=== PATIENT | female | born 1950 | race African-American/Black ===

== ENCOUNTER 2023-06-10 13:10 | Emergency (ER) | payer MEDICAID, OTHER, SELFPAY ==
[2023-06-10] MEDS ORDERED: Meclizine HCl 25 MG TAB ONE (14:28)
[2023-06-10 14:45] LABS: #Eosinphils 0.4 thou/uL (0.0-0.7); #Monocytes 0.4 thou/uL (0.11-0.59); #Neutrophils 3.3 thou/uL (1.40-6.50); %Basophils 0.3 % (0.0-1.0); %Eosinophils 5.8 % (0.0-10.0); %Lymphocytes 38.5 % (21.0-51.0); %Monocytes 6.3 % (0.0-10.0); %Neutrophils 48.8 % (42.0-75.0); Hematocrit 31.2 % (36.0-47.0); Hemoglobin 9.8 g/dL (12.0-16.0); Mean Corpuscular HGB CONC 31.4 g/dL (32.0-36.0); Mean Corpuscular Hemoglobin 29.1 pg (27.0-31.0); Mean Corpuscular Volume 92.6 fl (78.0-98.0); Mean Platelet Volume 10.2 fL (7.4-10.4); Platelet Count 282 10x3/uL (130-400); RBC Distribution Width 12.9 % (11.5-14.5); Red Blood Cell (RBC) Count 3.37 mill/uL (4.20-5.40); White Blood Cell (WBC) Count 6.7 10x3/uL (4.8-10.8)
[2023-06-10 15:08] LABS: ALT (SGPT) 15 U/L (8-55); AST (SGOT) 23 U/L (5-34); Albumin 3.9 g/dL (3.4-4.8); Alkaline Phosphatase 60 U/L (40-110); Anion Gap 12 mmol/L (10-20); BUN (Urea Nitrogen) 22 mg/dL (9.8-20.1); Bilirubin, Total 0.4 mg/dL (0.2-1.2); Calc. Creatinine Clearance 0 mL/min (70-130); Carbon Dioxide 22 mmol/L (23-31); Chloride 112 mmol/L (98-107); Estimated GFR 29; Globulin 3.6 g/dL (2.4-3.5); Glucose 88 mg/dL (80-115); Potassium 4.3 mmol/L (3.5-5.1); Protein, Total 7.5 g/dL (5.8-8.1); Sodium 142 mmol/L (136-145)
[2023-06-10 15:13] LABS: Troponin I Less than 0.010 ng/mL (< 0.028)
== END 2023-06-10 15:24 | disposition home or self-care (01) ==
LOC: ERS 13:10
DX: R42 Dizziness and giddiness (principal); R29.710 NIHSS score 10; E11.9 Type 2 diabetes mellitus without complications; I10 Essential (primary) hypertension; Z86.73 Personal history of transient ischemic attack (TIA), and cerebral infarction without residual deficits; Z79.899 Other long term (current) drug therapy
CPT/HCPCS: 70450; 80053; 84484; 85025; 93005

== ENCOUNTER 2023-06-30 11:16 | Outpatient (CLI) | payer OTHER | END 2023-06-30 11:17 | disposition home or self-care (01) | LOC: BICMAMMO 11:16 | PROVIDERS: ATTEND Family Medicine | DX: Z12.31 Encounter for screening mammogram for malignant neoplasm of breast (principal); Z80.3 Family history of malignant neoplasm of breast | CPT/HCPCS: 77063; 77067 ==

== ENCOUNTER → 2023-07-14 | Outpatient (CLI) | payer OTHER, MEDICAID | LOC: PET 08:45 | PROVIDERS: ATTEND Family Medicine | DX: R91.1 Solitary pulmonary nodule (principal) | CPT/HCPCS: 78815; A9552 ==

== ENCOUNTER 2023-10-10 08:27 | Outpatient (CLI) | payer OTHER, MEDICAID | END 2023-10-10 08:28 | disposition home or self-care (01) | LOC: CT 08:27 | PROVIDERS: ATTEND Student in an Organized Health Care Education/Training Program | DX: R91.8 Other nonspecific abnormal finding of lung field (principal) | CPT/HCPCS: 71250 ==

== ENCOUNTER 2024-04-08 11:16 | Inpatient (IN) | payer OTHER ==
[2024-04-08 11:58] LABS: #Basophils 0.03 10x3/uL (0.0-0.2); %Basophils 0.5 % (0.0-1.0); %Eosinophils 4.1 % (0.0-10.0); %Lymphocytes 40.5 % (21.0-51.0); %Monocytes 8.4 % (0.0-10.0); %Neutrophils 46.2 % (42.0-75.0); Hematocrit 29.6 % (36.0-47.0); Hemoglobin 9.6 g/dL (12.0-16.0); Mean Corpuscular HGB CONC 32.4 g/dL (32.0-36.0); Mean Corpuscular Volume 89.4 fL (78.0-98.0); Mean Platelet Volume 9.6 fL (7.4-10.4); Platelet Count 251 10x3/uL (130-400); RBC Distribution Width 12.7 % (11.5-14.5); Red Blood Cell (RBC) Count 3.31 mill/uL (4.20-5.40)
[2024-04-08 12:13] LABS: ALT (SGPT) 10 U/L (8-55); AST (SGOT) 21 U/L (5-34); Albumin 3.1 g/dL (3.4-4.8); Alkaline Phosphatase 49 U/L (40-110); Anion Gap 16 mmol/L (10-20); BUN (Urea Nitrogen) 30 mg/dL (9.8-20.1); Bilirubin, Total 0.4 mg/dL (0.2-1.2); Calc. Creatinine Clearance 0 mL/min (70-130); Calcium 8.6 mg/dL (7.8-10.44); Carbon Dioxide 21 mmol/L (23-31); Chloride 109 mmol/L (98-107); Estimated GFR 20; Globulin 4.1 g/dL (2.4-3.5); Glucose 77 mg/dL (83-110); Potassium 3.9 mmol/L (3.5-5.1); Protein, Total 7.2 g/dL (5.8-8.1); Sodium 142 mmol/L (136-145)
[2024-04-08 12:24] LABS: Troponin I Less than 0.010 ng/mL (< 0.028)
[2024-04-08] MEDS ORDERED: Glucagon 1 MG/ML KIT IM PRN (15:16)
[2024-04-08] MEDS ORDERED: Ondansetron ODT 4 MG TAB PO PRN (15:16)
[2024-04-08] MEDS ORDERED: Acetaminophen 650 MG Suppository PR PRN (15:16)
[2024-04-08] MEDS ORDERED: Dextrose 5% in Water 1,000 ML IV PRN (15:16)
[2024-04-08] MEDS ORDERED: Dextrose 50% Abboject 50 ML SYRINGE SLOW IVP PRN (15:16)
[2024-04-08] MEDS ORDERED: Senokot S 8.6-50 MG TAB PO PRN (15:16)
[2024-04-08] MEDS ORDERED: Nitroglycerin 0.4 MG TAB (25 Tab Bottle) SL PRN (15:16)
[2024-04-08] MEDS ORDERED: Insulin Lispro 100 UNIT/ML 10 ML VIAL SC PRN ×2 (15:16)
[2024-04-08] MEDS ORDERED: Ondansetron PF 4 MG/2 ML Vial IVP PRN (15:16)
[2024-04-08 15:18] LABS: Troponin I 0.041 ng/mL (< 0.028)
[2024-04-08 15:51] LABS: Magnesium 2.3 mg/dL (1.6-2.6)
[2024-04-08] MEDS ORDERED: Aspirin Chewable 81 MG TAB ONE (17:32)
[2024-04-08] MEDS ORDERED: Pantoprazole DR 40 MG TAB ONE (17:32)
[2024-04-08 17:40] VITALS: BMI 52.0
[2024-04-08] MEDS ORDERED: hydrALAZINE 25 MG TAB ONE (17:42)
[2024-04-08] MEDS ORDERED: Carvedilol 6.25 MG TAB ONE (17:42)
[2024-04-08] MEDS ORDERED: Heparin 5,000 UNITS/ML VIAL ONE (17:43)
[2024-04-08] MEDS: Carvedilol 6.25 MG TAB PO SCH (17:50)
[2024-04-08] MEDS: hydrALAZINE 25 MG TAB PO SCH (17:51)
[2024-04-08] MEDS: Heparin 5,000 UNITS/ML VIAL SC SCH (17:51)
[2024-04-08 18:59] LABS: Troponin I Less than 0.010 ng/mL (< 0.028)
[2024-04-08] MEDS: Atorvastatin Calcium 40 MG TAB PO SCH (20:24)
[2024-04-08] MEDS: Sodium Bicarbonate Tab 325 MG TAB PO SCH (20:24)
[2024-04-08] MEDS: Gabapentin 300 MG CAP PO SCH (20:24)
[2024-04-08] MEDS ORDERED: hydrALAZINE 10 MG TAB PO SCH (21:00)
[2024-04-08] MEDS ORDERED: Pantoprazole DR 40 MG TAB PO SCH (21:00)
[2024-04-08] MEDS: hydrALAZINE 20 MG/ML VIAL SLOW IVP SCH (21:37)
[2024-04-09] MEDS: Acetaminophen 325 MG TAB PO PRN (03:00)
[2024-04-09 06:23] LABS: #Basophils 0.03 10x3/uL (0.0-0.2); %Basophils 0.5 % (0.0-1.0); %Eosinophils 4.5 % (0.0-10.0); %Lymphocytes 35.5 % (21.0-51.0); %Monocytes 6.9 % (0.0-10.0); %Neutrophils 52.2 % (42.0-75.0); Hematocrit 26.9 % (36.0-47.0); Hemoglobin 8.9 g/dL (12.0-16.0); Mean Corpuscular HGB CONC 33.1 g/dL (32.0-36.0); Mean Corpuscular Volume 90.6 fL (78.0-98.0); Mean Platelet Volume 9.9 fL (7.4-10.4); Platelet Count 296 10x3/uL (130-400); RBC Distribution Width 12.8 % (11.5-14.5); Red Blood Cell (RBC) Count 2.97 mill/uL (4.20-5.40)
[2024-04-09 06:52] LABS: Anion Gap 14 mmol/L (10-20); BUN (Urea Nitrogen) 30 mg/dL (9.8-20.1); Calc. Creatinine Clearance 39 mL/min (70-130); Calcium 8.5 mg/dL (7.8-10.44); Carbon Dioxide 22 mmol/L (23-31); Chloride 111 mmol/L (98-107); Estimated GFR 18; Glucose 99 mg/dL (83-110); Potassium 4.2 mmol/L (3.5-5.1); Sodium 143 mmol/L (136-145)
[2024-04-09] MEDS: Aspirin 81 mg Enteric Coated Tablet PO SCH (08:37)
[2024-04-09] MEDS: Pantoprazole DR 40 MG TAB PO SCH (08:38)
[2024-04-09] MEDS ORDERED: Regadenoson 0.4 MG/5 ML SYRINGE ONE (09:41)
[2024-04-09] MEDS: traMADol HCl 50 MG TAB PO PRN (11:29)
[2024-04-09] MEDS: Sodium Chloride 0.9% 1,000 ML IV SCH (11:32)
[2024-04-09] MEDS: hydrALAZINE 25 MG TAB PO SCH ×2 (17:05→20:20)
[2024-04-09] MEDS: Carvedilol 25 MG TAB PO SCH (20:22)
[2024-04-09] MEDS: Doxepin HCl 10 MG CAP PO SCH ×2 (20:22)
[2024-04-09] MEDS ORDERED: hydrALAZINE 10 MG TAB PO SCH (21:00)
[2024-04-10] MEDS: hydrALAZINE 20 MG/ML VIAL SLOW IVP PRN (02:18)
[2024-04-10 05:30] LABS: Anion Gap 13 mmol/L (10-20); BUN (Urea Nitrogen) 28 mg/dL (9.8-20.1); Calc. Creatinine Clearance 44 mL/min (70-130); Calcium 8.2 mg/dL (7.8-10.44); Carbon Dioxide 21 mmol/L (23-31); Cardiac Risk 3.3 (Less than 4.5); Chloride 110 mmol/L (98-107); Cholesterol 114 mg/dl (< 200 Desired); Estimated GFR 21; Glucose 114 mg/dL (83-110); HDL Cholesterol 35 mg/dL (>60 Neg Risk); LDL Cholesterol, Calculated 62 mg/dL; Sodium 140 mmol/L (136-145); Triglycerides 84 mg/dL (Less than 150)
[2024-04-10] MEDS: Acetaminophen/Codeine 30-300mg Tablet PO SCH (06:24)
[2024-04-10] MEDS ORDERED: Non-Formulary Item 1 EACH (Sodium Bicarbonate [Sodium Bicarbonate] 650 MG Tablet) PO SCH (09:00)
[2024-04-10] MEDS: Atorvastatin Calcium 40 MG TAB PO SCH (09:00)
[2024-04-10] MEDS: Calcitriol 0.25 MCG CAP PO SCH (09:00)
[2024-04-10 12:12] VITALS: BP 148/68; TEMP 98.2
== END 2024-04-10 16:20 | disposition home or self-care (01) | DRG 313 ==
LOC: ERS 11:16 → ERHOLD 13:34 → OBS 19:40 → OBSVTOIN 04-10 13:04
PROVIDERS: ADMIT Internal Medicine; ATTEND Hospitalist
DX: R07.9 Chest pain, unspecified (principal); Z68.43 Body mass index [BMI] 50.0-59.9, adult; E78.5 Hyperlipidemia, unspecified; E11.22 Type 2 diabetes mellitus with diabetic chronic kidney disease; D63.8 Anemia in other chronic diseases classified elsewhere; I12.9 Hypertensive chronic kidney disease with stage 1 through stage 4 chronic kidney disease, or unspecified chronic kidney disease; F43.10 Post-traumatic stress disorder, unspecified; F41.9 Anxiety disorder, unspecified; F31.9 Bipolar disorder, unspecified; N18.9 Chronic kidney disease, unspecified; E66.01 Morbid (severe) obesity due to excess calories; Z90.49 Acquired absence of other specified parts of digestive tract; Z90.5 Acquired absence of kidney; Z86.73 Personal history of transient ischemic attack (TIA), and cerebral infarction without residual deficits; Z88.0 Allergy status to penicillin; Z88.8 Allergy status to other drugs, medicaments and biological substances; Z98.84 Bariatric surgery status; Z87.891 Personal history of nicotine dependence
CPT/HCPCS: 36415; 36416; 71045; 78452; 80048; 80053; 80061; 83735; 83880; 84443; 84484; 85025; 93005; 93017; 94760; 96372; 96374; 96376; A9502; G0378; J0360; J1644; J2785

== ENCOUNTER 2024-05-25 10:40 | Outpatient (CLI) | payer OTHER | END 2024-05-25 10:41 | disposition home or self-care (01) | LOC: BICCT 10:40 | PROVIDERS: ATTEND Student in an Organized Health Care Education/Training Program | DX: R91.1 Solitary pulmonary nodule (principal) | CPT/HCPCS: 71250 ==

== ENCOUNTER 2024-11-30 08:46 | Outpatient (CLI) | payer OTHER, MEDICAID | END 2024-11-30 08:47 | disposition home or self-care (01) | LOC: BICULT 08:46 | PROVIDERS: ATTEND Family Medicine | DX: C64.1 Malignant neoplasm of right kidney, except renal pelvis (principal) | CPT/HCPCS: 76700 ==

== ENCOUNTER 2024-12-04 09:29 | Outpatient (CLI) | payer OTHER, MEDICAID | END 2024-12-04 09:30 | disposition home or self-care (01) | LOC: MRI 09:29 | PROVIDERS: ATTEND Family Medicine | DX: K83.8 Other specified diseases of biliary tract (principal); K82.8 Other specified diseases of gallbladder; K80.20 Calculus of gallbladder without cholecystitis without obstruction | CPT/HCPCS: 74181; 76376 ==

== ENCOUNTER 2024-12-19 13:10 | Inpatient (IN) | payer OTHER ==
[2024-12-19] MEDS ORDERED: Mag-Al 1200 mg/1200 mg/30 ML UDCUP ONE (15:51)
[2024-12-19] MEDS ORDERED: Lidocaine Viscous Sol 2% 15 ml UD Cup ONE (15:51)
[2024-12-19 16:31] LABS: #Basophils 0.03 10x3/uL (0.0-0.2); #Eosinophils 0.28 10x3/uL (0.0-0.7); #Monocytes 0.46 10x3/uL (0.11-0.59); #Neutrophils 3.18 10x3/uL (1.40-6.50); %Basophils 0.5 % (0.0-1.0); %Eosinophils 4.6 % (0.0-10.0); %Lymphocytes 35.4 % (21.0-51.0); %Monocytes 7.5 % (0.0-10.0); %Neutrophils 51.7 % (42.0-75.0); Hematocrit 24.2 % (36.0-47.0); Hemoglobin 7.4 g/dL (12.0-16.0); Mean Corpuscular Hemoglobin 26.9 pg (27.0-31.0); Mean Corpuscular Volume 88.0 fL (78.0-98.0); Platelet Count 252 10x3/uL (130-400); Red Blood Cell (RBC) Count 2.75 mill/uL (4.20-5.40); White Blood Cell (WBC) Count 6.15 10x3/uL (4.8-10.8)
[2024-12-19 16:51] LABS: ALT (SGPT) 10 U/L (Less than 34); AST (SGOT) 22 U/L (11-34); Albumin 3.5 g/dL (3.1-4.5); Alkaline Phosphatase 50 U/L (40-110); Anion Gap 15 mmol/L (10-20); BUN (Urea Nitrogen) 32 mg/dL (9.8-20.1); Bilirubin, Total 0.3 mg/dL (0.3-1.2); Calc. Creatinine Clearance 0 mL/min (70-130); Calcium 8.9 mg/dL (7.8-10.44); Carbon Dioxide 26 mmol/L (23-31); Chloride 107 mmol/L (98-107); Globulin 3.8 g/dL (2.4-3.5); Glucose 106 mg/dL (83-110); Lipase 27 U/L (8-78); Potassium 3.8 mmol/L (3.5-5.1); Sodium 144 mmol/L (136-145)
[2024-12-19] MEDS ORDERED: Senokot S 8.6-50 MG TAB PO PRN (22:01)
[2024-12-19] MEDS ORDERED: Ondansetron PF 4 MG/2 ML Vial IVP PRN (22:01)
[2024-12-19] MEDS ORDERED: Melatonin 3 MG TAB PO PRN (22:01)
[2024-12-19] MEDS ORDERED: Electrolyte Replacement Protocol 1 EACH FS SCH (22:15)
[2024-12-19 23:16] VITALS: BMI 43.2
[2024-12-19] MEDS: Carvedilol 25 MG TAB PO SCH (23:52)
[2024-12-20] MEDS: Calcitriol 0.25 MCG CAP PO SCH (08:50)
[2024-12-20] MEDS: Carvedilol 25 MG TAB PO SCH (08:50)
[2024-12-20] MEDS: Sodium Bicarbonate Tab 325 MG TAB PO SCH (08:50)
[2024-12-20] MEDS: Heparin 5,000 UNITS/ML VIAL SC SCH (08:50)
[2024-12-20] MEDS: Gabapentin 300 MG CAP PO SCH (08:50)
[2024-12-20] MEDS: Pantoprazole 40 MG DR.TAB PO SCH (08:50)
[2024-12-20] MEDS: Furosemide 20 MG (2 mL) VIAL SLOW IVP SCH (08:51)
[2024-12-20] MEDS ORDERED: Famotidine 20 MG TAB PO SCH (09:00)
[2024-12-20] MEDS: Isosorbide Mononitrate 60 MG ER.TAB PO SCH (10:04)
[2024-12-20 10:21] LABS: #Basophils Less than 0.03 10x3/uL (0.0-0.2); #Eosinophils 0.25 10x3/uL (0.0-0.7); #Monocytes 0.40 10x3/uL (0.11-0.59); #Neutrophils 3.11 10x3/uL (1.40-6.50); %Basophils 0.4 % (0.0-1.0); %Eosinophils 4.5 % (0.0-10.0); %Lymphocytes 31.2 % (21.0-51.0); %Monocytes 7.2 % (0.0-10.0); %Neutrophils 56.3 % (42.0-75.0); Hematocrit 24.6 % (36.0-47.0); Hemoglobin 7.6 g/dL (12.0-16.0); Mean Corpuscular Hemoglobin 27.7 pg (27.0-31.0); Mean Corpuscular Volume 89.8 fL (78.0-98.0); Platelet Count 260 10x3/uL (130-400); Red Blood Cell (RBC) Count 2.74 mill/uL (4.20-5.40); White Blood Cell (WBC) Count 5.52 10x3/uL (4.8-10.8)
[2024-12-20 10:28] LABS: Anion Gap 15 mmol/L (10-20); BUN (Urea Nitrogen) 36 mg/dL (9.8-20.1); Calc. Creatinine Clearance 28 mL/min (70-130); Calcium 8.9 mg/dL (7.8-10.44); Carbon Dioxide 25 mmol/L (23-31); Chloride 107 mmol/L (98-107); Glucose 110 mg/dL (83-110); Potassium 4.0 mmol/L (3.5-5.1); Sodium 143 mmol/L (136-145)
[2024-12-20] MEDS: EPOETIN ALFA-EPBX (ESRD) 10,000 UNITS/ML VIAL SC SCH (11:08)
[2024-12-20] MEDS: Acetaminophen 325 MG TAB PO PRN (13:00)
[2024-12-20] MEDS: hydrALAZINE 20 MG/ML VIAL SLOW IVP PRN (16:31)
[2024-12-20] MEDS: Pantoprazole 40 MG VIAL IVP SCH (21:03)
[2024-12-20] MEDS: Insulin Glargine 30 UNITS/0.3 ML VIAL SC SCH (21:03)
[2024-12-21 05:31] LABS: Iron 29 ug/dL (50-170); Iron Binding Capacity, Total 250 mcg/dL (265-497)
[2024-12-21] MEDS ORDERED: Ondansetron PF 4 MG/2 ML Vial ONE (07:21)
[2024-12-21] MEDS ORDERED: PROPOFOL 20 ML ONE (07:21)
[2024-12-21] MEDS ORDERED: GLYCOPYRROLATE/PF 0.2 MG/ML VIAL ONE (07:21)
[2024-12-21 07:24] LABS: Anion Gap 10 mmol/L (10-20); BUN (Urea Nitrogen) 37 mg/dL (9.8-20.1); Calc. Creatinine Clearance 27 mL/min (70-130); Calcium 8.6 mg/dL (7.8-10.44); Carbon Dioxide 24 mmol/L (23-31); Chloride 112 mmol/L (98-107); Glucose 106 mg/dL (83-110); Potassium 3.8 mmol/L (3.5-5.1); Sodium 142 mmol/L (136-145)
[2024-12-21] MEDS: Acetaminophen 500 MG TAB PO SCH (10:48)
[2024-12-21] MEDS: Sodium Ferric Gluconate 250 MG in Sodium Chloride 0.9% 250 ML 250 ML IVPB SCH (10:49)
[2024-12-22 05:42] LABS: #Basophils Less than 0.03 10x3/uL (0.0-0.2); #Eosinophils Less than 0.03 10x3/uL (0.0-0.7); #Monocytes 0.63 10x3/uL (0.11-0.59); #Neutrophils 6.98 10x3/uL (1.40-6.50); %Basophils 0.1 % (0.0-1.0); %Eosinophils 0.1 % (0.0-10.0); %Lymphocytes 17.3 % (21.0-51.0); %Monocytes 6.8 % (0.0-10.0); %Neutrophils 75.3 % (42.0-75.0); Hematocrit 25.2 % (36.0-47.0); Hemoglobin 7.9 g/dL (12.0-16.0); Mean Corpuscular Hemoglobin 28.0 pg (27.0-31.0); Mean Corpuscular Volume 89.4 fL (78.0-98.0); Platelet Count 239 10x3/uL (130-400); Red Blood Cell (RBC) Count 2.82 mill/uL (4.20-5.40); White Blood Cell (WBC) Count 9.28 10x3/uL (4.8-10.8)
[2024-12-22 06:01] LABS: Anion Gap 14 mmol/L (10-20); BUN (Urea Nitrogen) 38 mg/dL (9.8-20.1); Calc. Creatinine Clearance 28 mL/min (70-130); Calcium 8.7 mg/dL (7.8-10.44); Carbon Dioxide 25 mmol/L (23-31); Chloride 109 mmol/L (98-107); Glucose 117 mg/dL (83-110); Potassium 4.6 mmol/L (3.5-5.1); Sodium 143 mmol/L (136-145)
[2024-12-22] MEDS: Dapagliflozin Propanediol 10 MG TAB PO SCH (08:47)
[2024-12-22] MEDS ORDERED: Sodium Ferric Gluconate 250 MG in Sodium Chloride 0.9% 250 ML 250 ML IVPB SCH (12:00)
[2024-12-22 12:33] VITALS: BP 108/55; TEMP 97.9
== END 2024-12-22 13:07 | disposition home or self-care (01) | DRG 381 ==
LOC: ERS 13:10 → OBS 21:58 → OBSVTOIN 12-20 13:12
PROVIDERS: ADMIT Internal Medicine; ATTEND Hospitalist
PROC: 0DB58ZX Excision of Esophagus, Via Natural or Artificial Opening Endoscopic, Diagnostic (ICD-10-PCS; principal; 2024-12-21)
DX: K22.10 Ulcer of esophagus without bleeding (principal); N17.9 Acute kidney failure, unspecified; N18.4 Chronic kidney disease, stage 4 (severe); E11.22 Type 2 diabetes mellitus with diabetic chronic kidney disease; E78.5 Hyperlipidemia, unspecified; J45.909 Unspecified asthma, uncomplicated; I50.9 Heart failure, unspecified; Z79.899 Other long term (current) drug therapy; Z86.73 Personal history of transient ischemic attack (TIA), and cerebral infarction without residual deficits; F31.9 Bipolar disorder, unspecified; E66.9 Obesity, unspecified; Z90.49 Acquired absence of other specified parts of digestive tract; K80.20 Calculus of gallbladder without cholecystitis without obstruction; D63.1 Anemia in chronic kidney disease; E11.21 Type 2 diabetes mellitus with diabetic nephropathy; I27.20 Pulmonary hypertension, unspecified
CPT/HCPCS: 36415; 36416; 71045; 71250; 74177; 80048; 80053; 82728; 83540; 83550; 83690; 83880; 84484; 85025; 88305; 88312; 93005; 93306; 94640; 94760; 96372; 96374; G0378; J0360; J1644; J1815; J1940; J2405; J2470; J2704; J2916; J3490; J7050; J7620; Q5105